=== PATIENT | male | born 1940 | race Caucasian/White ===

== ENCOUNTER 2019-04-12 23:05 | Inpatient (IN) | payer OTHER, MEDICARE ==
[2019-04-12] MEDS: SODIUM CHLORIDE 0.9% 1L BAG IV* (23:39)
[2019-04-12] MEDS: ACETAMINOPHEN 500 MG TAB PO (23:40)
[2019-04-12] MEDS: CHLORPROMAZINE 25 MG TAB PO (23:47)
[2019-04-13] MEDS ORDERED: BISACODYL (EC) 5 MG TAB PO (01:00)
[2019-04-13] MEDS ORDERED: NACL 0.9% 3 ML SYG IV (01:00)
[2019-04-13] MEDS ORDERED: ONDANSETRON 4 MG INJ IV ×3 (01:00→01:30)
[2019-04-13] MEDS ORDERED: ACETAMINOPHEN 325 MG TAB PO (01:00)
[2019-04-13] MEDS ORDERED: DOCUSATE SODIUM 100 MG CAP PO (01:00)
[2019-04-13] MEDS: CEFTRIAXONE 2 GM/50 ML (PMX) 50 ML IVPB (01:25)
[2019-04-13] MEDS: LIDOCAINE/MYLANTA 40 ML BTL PO (01:25)
[2019-04-13] MEDS ORDERED: VANCOMYCIN IV PER PHARMACY XX (01:30)
[2019-04-13] MEDS: SOD CHLORIDE 0.9% 1,000 ML IV ×2 (02:22→13:51)
[2019-04-13] MEDS: VANCOMYCIN 1.5 GM/NS 250 ML 250 ML IVPB (02:22)
[2019-04-13] MEDS: PIPER-TAZO 3.375 GM IV (PMX) 100 ML IVPB ×4 (06:24→23:42)
[2019-04-13] MEDS: SOD CHLORIDE 0.9% 500 ML IV (06:24)
[2019-04-13] MEDS ORDERED: VANCOMYCIN 1.25 GM/NS 250 ML 250 ML IVPB (14:00)
[2019-04-13] MEDS: GUAIFENESIN/DM 5ML CUP PO (14:29)
[2019-04-13] MEDS: POTASSIUM CHLORIDE (SR) 20 MEQ TAB PO (14:30)
[2019-04-13] MEDS: CALCIUM CARBONATE 500 MG CHEW TAB PO (17:07)
[2019-04-13] MEDS: ACETAMINOPHEN 325 MG TAB PO (19:54)
[2019-04-13] MEDS: ATORVASTATIN 10 MG TAB PO (20:00)
[2019-04-14] MEDS: VANCOMYCIN 1.25 GM/NS 250 ML 250 ML IVPB (02:30)
[2019-04-14] MEDS: SOD CHLORIDE 0.9% 1,000 ML IV ×2 (03:39→16:42)
[2019-04-14] MEDS: PIPER-TAZO 3.375 GM IV (PMX) 100 ML IVPB ×3 (05:46→17:11)
[2019-04-14] MEDS: ASPIRIN (EC) 81 MG TAB PO (08:25)
[2019-04-14] MEDS: GUAIFENESIN/DM 5ML CUP PO (17:11)
[2019-04-14] MEDS: ATORVASTATIN 10 MG TAB PO (21:21)
[2019-04-15] MEDS: PIPER-TAZO 3.375 GM IV (PMX) 100 ML IVPB ×3 (00:05→11:11)
[2019-04-15] MEDS: GUAIFENESIN/DM 5ML CUP PO ×4 (01:09→22:54)
[2019-04-15] MEDS: VANCOMYCIN 1.25 GM/NS 250 ML 250 ML IVPB (03:09)
[2019-04-15] MEDS: SOD CHLORIDE 0.9% 1,000 ML IV ×2 (06:16→20:44)
[2019-04-15] MEDS: ASPIRIN (EC) 81 MG TAB PO (08:10)
[2019-04-15] MEDS: CEFTRIAXONE 2 GM/50 ML (PMX) 50 ML IVPB (15:55)
[2019-04-15] MEDS: ATORVASTATIN 10 MG TAB PO (20:43)
[2019-04-16] MEDS: LEVOTHYROXINE 25 MCG TAB PO (06:18)
[2019-04-16] MEDS: ASPIRIN (EC) 81 MG TAB PO (08:45)
[2019-04-16] MEDS: CEFTRIAXONE 2 GM/50 ML (PMX) 50 ML IVPB (15:06)
[2019-04-16] MEDS: ATORVASTATIN 10 MG TAB PO (20:02)
[2019-04-17] MEDS: LEVOTHYROXINE 25 MCG TAB PO (06:12)
[2019-04-17] MEDS: ASPIRIN (EC) 81 MG TAB PO (08:42)
[2019-04-17] MEDS: CEFTRIAXONE 2 GM/50 ML (PMX) 50 ML IVPB (16:43)
[2019-04-17] MEDS: ATORVASTATIN 10 MG TAB PO (21:34)
[2019-04-18] MEDS: LEVOTHYROXINE 25 MCG TAB PO (06:14)
[2019-04-18] MEDS: ASPIRIN (EC) 81 MG TAB PO (09:00)
[2019-04-18] MEDS: ENOXAPARIN 40 MG/0.4 ML SYG SC (09:08)
[2019-04-18] MEDS: CEFTRIAXONE 2 GM/50 ML (PMX) 50 ML IVPB (15:06)
[2019-04-18] MEDS: AMLODIPINE 10 MG TAB PO (16:12)
[2019-04-18] MEDS: ATORVASTATIN 10 MG TAB PO (20:15)
[2019-04-19] MEDS: LEVOTHYROXINE 25 MCG TAB PO (05:57)
[2019-04-19] MEDS: AMLODIPINE 10 MG TAB PO (08:40)
[2019-04-19] MEDS: ASPIRIN (EC) 81 MG TAB PO (08:42)
[2019-04-19] MEDS: ENOXAPARIN 40 MG/0.4 ML SYG SC (08:50)
[2019-04-19] MEDS: CEFTRIAXONE 2 GM/50 ML (PMX) 50 ML IVPB (14:59)
[2019-04-19] MEDS: ATORVASTATIN 10 MG TAB PO (20:46)
[2019-04-20] MEDS: LEVOTHYROXINE 25 MCG TAB PO (06:17)
[2019-04-20] MEDS: AMLODIPINE 10 MG TAB PO (08:28)
[2019-04-20] MEDS: ASPIRIN (EC) 81 MG TAB PO (08:28)
[2019-04-20] MEDS: ENOXAPARIN 40 MG/0.4 ML SYG SC (08:55)
[2019-04-20] MEDS: CEFTRIAXONE 2 GM/50 ML (PMX) 50 ML IVPB (14:34)
[2019-04-20] MEDS: ATORVASTATIN 10 MG TAB PO (21:56)
[2019-04-21] MEDS: LEVOTHYROXINE 25 MCG TAB PO (06:18)
[2019-04-21] MEDS: ASPIRIN (EC) 81 MG TAB PO (09:02)
[2019-04-21] MEDS: AMLODIPINE 10 MG TAB PO (09:04)
[2019-04-21] MEDS: ENOXAPARIN 40 MG/0.4 ML SYG SC (10:11)
[2019-04-21] MEDS: CEFTRIAXONE 2 GM/50 ML (PMX) 50 ML IVPB (15:47)
[2019-04-21] MEDS: ATORVASTATIN 10 MG TAB PO (21:37)
[2019-04-22] MEDS: LEVOTHYROXINE 25 MCG TAB PO (05:52)
[2019-04-22] MEDS: ASPIRIN (EC) 81 MG TAB PO (08:07)
[2019-04-22] MEDS: AMLODIPINE 10 MG TAB PO (08:07)
[2019-04-22] MEDS: ENOXAPARIN 40 MG/0.4 ML SYG SC (08:11)
[2019-04-22] MEDS: CEFTRIAXONE 2 GM/50 ML (PMX) 50 ML IVPB (15:18)
[2019-04-22] MEDS: ATORVASTATIN 10 MG TAB PO (20:42)
[2019-04-23] MEDS: LEVOTHYROXINE 25 MCG TAB PO (06:50)
[2019-04-23] MEDS: ASPIRIN (EC) 81 MG TAB PO (09:37)
[2019-04-23] MEDS: AMLODIPINE 10 MG TAB PO (09:37)
[2019-04-23] MEDS: ENOXAPARIN 40 MG/0.4 ML SYG SC (09:45)
[2019-04-23] MEDS: CEFTRIAXONE 2 GM/50 ML (PMX) 50 ML IVPB (15:51)
[2019-04-23] MEDS: ATORVASTATIN 10 MG TAB PO (20:20)
[2019-04-24] MEDS: LEVOTHYROXINE 25 MCG TAB PO (06:05)
[2019-04-24] MEDS: AMLODIPINE 10 MG TAB PO (08:39)
[2019-04-24] MEDS: ASPIRIN (EC) 81 MG TAB PO (08:39)
[2019-04-24] MEDS: ENOXAPARIN 40 MG/0.4 ML SYG SC (08:43)
[2019-04-24] MEDS: CEFTRIAXONE 2 GM/50 ML (PMX) 50 ML IVPB (16:38)
[2019-04-24] MEDS: ATORVASTATIN 10 MG TAB PO (20:35)
[2019-04-24] MEDS: DEXTROSE 5%-0.9% NACL 1,000 ML IV (22:21)
[2019-04-25] MEDS: DEXTROSE 5%-0.9% NACL 1,000 ML IV (05:47)
[2019-04-25] MEDS: LEVOTHYROXINE 25 MCG TAB PO (05:47)
[2019-04-25] MEDS: AMLODIPINE 10 MG TAB PO (08:52)
[2019-04-25] MEDS: ENOXAPARIN 40 MG/0.4 ML SYG SC (08:54)
[2019-04-25] MEDS: ASPIRIN (EC) 81 MG TAB PO (08:54)
[2019-04-25] MEDS ORDERED: POLYMYXIN/BACITRACIN 1L IRRIG (10:47)
[2019-04-25] MEDS ORDERED: CEFAZOLIN 1 GM/50 ML (PMX) 50 ML IVPB ×2 (10:53)
[2019-04-25] MEDS ORDERED: LIDOCAINE 2%/EPI 30 ML INJ (10:54)
[2019-04-25] MEDS ORDERED: FENTAnyl 50 MCG/ML VIAL IV (11:00)
[2019-04-25] MEDS ORDERED: PROCHLORPERAZINE 10 MG INJ IV (11:00)
[2019-04-25] MEDS ORDERED: DIPHENHYDRAMINE 50 MG INJ IV (11:00)
[2019-04-25] MEDS ORDERED: HYDROmorphONE 1 MG/5 ML IV SYRINGE IV ×2 (11:00)
[2019-04-25] MEDS ORDERED: MEPERIDINE 25 MG INJ IV (11:00)
[2019-04-25] MEDS ORDERED: ONDANSETRON 4 MG INJ IV (11:00)
[2019-04-25] MEDS ORDERED: PROPOFOL 20 ML (11:31)
[2019-04-25] MEDS ORDERED: FENTAnyl 50 MCG/ML VIAL (11:31)
[2019-04-25] MEDS ORDERED: LIDOCAINE 2% (SDV) 5 ML INJ (11:31)
[2019-04-25] MEDS ORDERED: PROPOFOL 0 ML (11:31)
[2019-04-25] MEDS ORDERED: IOHEXOL 350MG/ML 50 ML BTL (11:42)
[2019-04-25] MEDS ORDERED: morphine 2 MG INJ IV (13:30)
[2019-04-25] MEDS: CEFAZOLIN 1 GM/50 ML (PMX) 50 ML IVPB ×2 (15:04→21:10)
[2019-04-25] MEDS: ACETAMINOPHEN 325 MG TAB PO (15:24)
[2019-04-25] MEDS: CEFTRIAXONE 2 GM/50 ML (PMX) 50 ML IVPB (16:31)
[2019-04-25] MEDS: ATORVASTATIN 10 MG TAB PO (21:10)
[2019-04-26] MEDS: ACETAMINOPHEN 325 MG TAB PO ×2 (05:37→21:09)
[2019-04-26] MEDS: CEFAZOLIN 1 GM/50 ML (PMX) 50 ML IVPB (06:22)
[2019-04-26] MEDS: LEVOTHYROXINE 25 MCG TAB PO (06:22)
[2019-04-26] MEDS: AMLODIPINE 10 MG TAB PO (08:36)
[2019-04-26] MEDS: ASPIRIN (EC) 81 MG TAB PO (08:36)
[2019-04-26] MEDS: CEFTRIAXONE 2 GM/50 ML (PMX) 50 ML IVPB (14:38)
[2019-04-26] MEDS: ATORVASTATIN 10 MG TAB PO (21:02)
[2019-04-27] MEDS: LEVOTHYROXINE 25 MCG TAB PO (05:56)
[2019-04-27] MEDS: LEVOFLOXACIN 500 MG TAB PO (05:56)
[2019-04-27] MEDS: AMLODIPINE 10 MG TAB PO (08:36)
[2019-04-27] MEDS: ASPIRIN (EC) 81 MG TAB PO (08:36)
== END 2019-04-27 11:47 | disposition home or self-care (01) | DRG 854 ==
LOC: E/R 23:05 → TEL 04-14 23:36
PROC: 0JH606Z Insertion of Pacemaker, Dual Chamber into Chest Subcutaneous Tissue and Fascia, Open Approach (ICD-10-PCS; principal; 2019-04-25 11:34)
PROC: 02H63JZ Insertion of Pacemaker Lead into Right Atrium, Percutaneous Approach (ICD-10-PCS; 2019-04-25 11:34)
PROC: 02HK3JZ Insertion of Pacemaker Lead into Right Ventricle, Percutaneous Approach (ICD-10-PCS; 2019-04-25 11:34)
DX: A41.51 Sepsis due to Escherichia coli [E. coli] (principal); N39.0 Urinary tract infection, site not specified; E87.1 Hypo-osmolality and hyponatremia; I44.2 Atrioventricular block, complete; R65.20 Severe sepsis without septic shock; E86.0 Dehydration; I10 Essential (primary) hypertension; E78.5 Hyperlipidemia, unspecified; E03.9 Hypothyroidism, unspecified; Z85.46 Personal history of malignant neoplasm of prostate; I25.10 Atherosclerotic heart disease of native coronary artery without angina pectoris; E66.01 Morbid (severe) obesity due to excess calories; Z68.32 Body mass index [BMI] 32.0-32.9, adult; Z95.3 Presence of xenogenic heart valve; Z95.1 Presence of aortocoronary bypass graft
CPT/HCPCS: 36415; 71045; 76775; 80048; 80053; 80061; 81001; 83036; 83605; 83735; 83930; 83935; 84145; 84153; 84154; 84300; 84439; 84443; 84484; 85025; 85610; 85730; 87040-91; 87086; 93005; 93306; 93880; 99285-25